=== PATIENT | female | born 1975 | race Caucasian/White ===

== ENCOUNTER 2018-06-13 09:51 | Emergency (ER) | payer SELFPAY ==
[~2018-06-13] VITALS: Ht 160 cm; Wt 96.0 kg
[2018-06-13] MEDS ORDERED: TORADOL PO (10:31)
[2018-06-13] MEDS ORDERED: AMOXICILLIN500 MG PO (10:31)
[2018-06-13 11:10] VITALS: BP 186/118
[2018-06-13] MEDS ORDERED: LISINOPRIL20 MG PO (11:14)
== END 2018-06-13 11:10 | disposition home or self-care (01) | DRG 159 ==
LOC: ED 09:51
DX: K08.89 Other specified disorders of teeth and supporting structures (principal); I10 Essential (primary) hypertension; S02.5XXA Fracture of tooth (traumatic), initial encounter for closed fracture